=== PATIENT | female | born 1970 | race Caucasian/White ===

== ENCOUNTER 2022-04-27 18:34 | Inpatient (IN) | payer MEDICAID ==
[~2022-04-27] VITALS: Ht 160 cm; Wt 61.2 kg
[2022-04-27 18:39] VITALS: BP 161/112
--- NOTE | 2022-04-27 19:30 | NUR ---
RECEIVED PT IN BED 9, [facility] FROM [facility], PER EMS STAFF CALLED 911 STATING PATIENT WAS HYPERTENSIVE, EMS STATES BP ON SCENE WAS 184/100. PATIENT NONVERBAL NONAMBULATORY AT BASELINE. PMH: ID, ANXIETY [id number]
[2022-04-27] MEDS ORDERED: NACL 0.9% 1,000 ML IV ONE (20:10)
[2022-04-27 21:41] LABS: BASOPHILS % (AUTO) 0.3 % (0.0-2.0); EOSINOPHILS # (AUTO) 0.1 K/uL (0-0.4); EOSINOPHILS % (AUTO) 0.5 % (0.0-4.0); HEMOGLOBIN 12.1 g/dL (12.0-16.0); LYMPHOCYTES # (AUTO) 0.9 K/uL (2.5-16.5); LYMPHOCYTES % (AUTO) 7.1 % (20.5-51.1); MEAN CORPUSCULAR HEMOGLOBIN 29 pg (27-31); MEAN CORPUSCULAR HGB CONC 33 g/dL (33-37); MEAN CORPUSCULAR VOLUME 88.3 fL (80-94); MONOCYTES # (AUTO) 0.5 K/uL (0.8-1.0); NEUTROPHILS # (AUTO) 11.3 K/uL (1.8-7.7); NEUTROPHILS % (AUTO) 88.1 % (42.2-75.2); PLATELET COUNT (AUTO) 334 K/uL (140-450); RED BLOOD CELL COUNT(AUTO) 4.18 MIL/uL (4.20-5.40); WHITE BLOOD COUNT (AUTO) 12.8 K/uL (4.8-10.8)
[2022-04-27 21:52] LABS: APPEARANCE,URINE CLEAR (CLEAR); BILIRUBIN,URINE NEGATIVE (NEGATIVE); BLOOD, URINE TRACE-I (NEGATIVE); COLOR,URINE YELLOW (YELLOW); LEUKOCYTE ESTERASE ,URINE 2+ (NEGATIVE); NITRITE, URINE POSITIVE (NEGATIVE); UGLUCOSE TRACE (NEGATIVE)
--- NOTE | 2022-04-27 22:00 | NUR ---
STRAIGHT CATHED FOR UA
[2022-04-27 22:01] LABS: ALBUMIN 3.4 g/dL (3.4-5.0); CARBON DIOXIDE 26.6 mmol/L (21-32); CHLORIDE 101 mmol/L (98-107); CREATININE 0.8 mg/dL (0.6-1.3); GFR ARICAN-AMERICAN 96 mL/min (>90); GLUCOSE 178 mg/dL (74-106); POTASSIUM 3.6 mmol/L (3.5-5.1); SODIUM SERUM 136 mmol/L (136-145); TOTAL BILIRUBIN 0.3 mg/dL (0.0-1.0); UREA NITROGEN, BLOOD 21 mg/dL (7-18)
[2022-04-27] MEDS ORDERED: MAG SULF 2000 MG/WATER PREMIX 50 ML IV PRN (22:20)
[2022-04-27] MEDS ORDERED: POTASSIUM CHLORIDE 10 MEQ TABER PO PRN (22:20)
[2022-04-27] MEDS ORDERED: MORPHINE SULFATE 2 MG/ML SYR IVP PRN (22:20)
[2022-04-27] MEDS ORDERED: ACETAMINOPHEN 325 MG TAB PO PRN (22:20)
[2022-04-27] MEDS ORDERED: ZOLPIDEM 10 MG TAB PO PRN (22:20)
[2022-04-27] MEDS ORDERED: ONDANSETRON 4 MG/2 ML VIAL IVP PRN (22:20)
[2022-04-27] MEDS ORDERED: LORazepam 2 MG/ML VIAL IVP PRN (22:20)
[2022-04-27] MEDS ORDERED: DOCUSATE SODIUM 100 MG GELCAP PO PRN (22:20)
[2022-04-27] MEDS ORDERED: hydrALAZINE 20 MG/ML VIAL IVP PRN (22:20)
[2022-04-27 22:21] LABS: ASPARTATE AMINOTRANSFERASE 29 U/L (15-37)
--- NOTE | 2022-04-27 22:34 | NUR ---
CALLED NUMBER LISTED ON FILE TO COMPLETE MEDICATION RECONCILLIATION, PER FEI "I'M NOT MEDICATION CERTIFIED AND SO I DONT HAVE ACCESS TO THE INFORMATION." UNABLE TO COMPLETE MED REC AT THIS TIME.
--- NOTE | 2022-04-27 22:48 | NUR ---
JOBY OBTAINED AND SENT TO LAB
--- NOTE | 2022-04-28 00:20 | NUR ---
TO 110B VIA GURNEY ATTACHED TO SHOOTING GALLERY OPERATOR accompanied by 2 rns
[2022-04-28 01:00] VITALS: BP 144/79
--- NOTE | 2022-04-28 01:00 | NUR ---
Patient's Plan of Care was discussed and reviewed with DIGESTER OPERATOR HELPER: JACY BAILEY
--- NOTE | 2022-04-28 01:00 | NUR ---
Admitted from ER TO TELEMETRY UNIT , with chief complaint of HIGH BLOOD PRESSURE, 52 y/o ,Female, Cooperative, AWAKE, ALERT, NON-VERBAL, PATIENT WITH HISTORY OF SEVERE INTELLECTUAL DISABILITY. RESPIRATION EVEN AND UNLABORED. 02 SAT - 95% ON ROOM AIR. IV SALINE LOCK AT THE RIGHT AC G20, PATENT AND INTACT. INCONTINENT.HEAD TO TOE ASSESSMENT WITH CHEYANNE RN, NOTED REDNESS ON PERINEAL AREA, SKIN IS INTACT. NO APPEARANCE OF PAIN OR DISCOMFORT NOTED, FLACC -0. oriented to call light, bed, phone,television, bathroom, smoking policy,visiting hours, procedures, ID bracelet on. Belongings list checked.
--- NOTE | 2022-04-28 03:00 | NUR ---
SLEEPING COMFORTABLY IN BED. RESPIRATION EVEN AND UNLABORED.
[2022-04-28 04:00] VITALS: BP 140/87
--- NOTE | 2022-04-28 04:00 | NUR ---
VS STABLE. HR - 99, SINUS RHYTHM ON TELE MONITORING.
[2022-04-28 07:20] LABS: BASOPHILS % (AUTO) 0.2 % (0.0-2.0); EOSINOPHILS % (AUTO) 0.3 % (0.0-4.0); HEMATOCRIT 36.2 % (36-48); HEMOGLOBIN 11.9 g/dL (12.0-16.0); LYMPHOCYTES # (AUTO) 1.4 K/uL (2.5-16.5); LYMPHOCYTES % (AUTO) 11.8 % (20.5-51.1); MEAN CORPUSCULAR HEMOGLOBIN 29 pg (27-31); MEAN CORPUSCULAR HGB CONC 33 g/dL (33-37); MEAN CORPUSCULAR VOLUME 88.6 fL (80-94); MONOCYTES # (AUTO) 0.5 K/uL (0.8-1.0); MONOCYTES % (AUTO) 4.7 % (1.7-9.3); NEUTROPHILS # (AUTO) 9.6 K/uL (1.8-7.7); PLATELET COUNT (AUTO) 313 K/uL (140-450); RED BLOOD CELL COUNT(AUTO) 4.08 MIL/uL (4.20-5.40); RED CELL DISTRIBUTION WIDTH 16.2 % (11.6-13.7); WHITE BLOOD COUNT (AUTO) 11.5 K/uL (4.8-10.8)
--- NOTE | 2022-04-28 07:20 | NUR ---
ENDORSED TO AM SHIFT NURSE FOR CONTINUITY OF CARE.
--- NOTE | 2022-04-28 07:30 | NUR ---
RECEIVED REPORT FROM [employer]OTB[employer] COACH NURSE FOR CONTINUITY OF CARE, POC DISCUSSED. PT IS RESTING IN BED, APHASIC. ON TELE, ON ROOM AIR, CHEST RISING AND FALLING EVEN AND UNLABORED. NO ACUTE S/S OF DISTRESS. ALL SAFETY MEASURES IN PLACE, CALL LIGHT WITHIN REACH.
[2022-04-28 07:41] LABS: CARBON DIOXIDE 29.3 mmol/L (21-32); CREATININE 0.7 mg/dL (0.6-1.3); POTASSIUM 3.3 mmol/L (3.5-5.1)
[2022-04-28 08:00] VITALS: BP 142/99
--- NOTE | 2022-04-28 09:24 | NUR ---
PATIENT HAS BEEN SCREENED AND CATEGORIZED MODERATE NUTRITION RISK. PATIENT WILL BE SEEN WITHIN 3-5 DAYS OF ADMISSION. REVIEWED BY FITO TELLEZ RD
--- NOTE | 2022-04-28 10:21 | NUR ---
SPOKE WITH MILVIA JULIEN RN FROM PTS FACILITY. REQUESTING PT GET A XRAY ON RIGHT LEG DUE TO PAIN. MADE AWARE AND SEN RECEIVED
[2022-04-28 12:00] VITALS: BP 152/92
--- NOTE | 2022-04-28 14:24 | NUR ---
RIOS JULIEN CALLED AGAIN, ASKING IF THE RESULTS ARE AVAILABLE. STATED PENDING MDS TO READ RESULTS
--- NOTE | 2022-04-28 15:19 | NUR ---
PT REMOVED IV, CATH IN PLACE. NO BLEEDING NOTED.
--- NOTE | 2022-04-28 15:47 | NUR ---
DC PLANNING ASSESSMENT COMPLETE PLEASE REFER TO ASSESSMENT FOR DETAILS MOE REPORTS DC PLAN IS FOR PT TO RETURN TO [facility] WITH HOME PROVIDING TRANSPORTATION, WHEN PT IS MEDICALLY STABLE.
--- NOTE | 2022-04-28 15:50 | NUR ---
IV PLACED TO LEFT FOREARM 22G, 2 ATTEMPTS. PT TOLERATED. ALL SAFETY MEASURES IN PLACE
[2022-04-28 16:00] VITALS: BP 152/83
--- NOTE | 2022-04-28 18:15 | NUR ---
ALL NEEDS HAVE BEEN MET THROUGHOUT THE SHIFT, ALL SAFETY MEASURES IN PLACE. VSS.
--- NOTE | 2022-04-28 19:20 | NUR ---
RECD REPORT FROM BOSTON MAYA. PATIENT RESTING IN BED, AWAKE, ALERT, NON-VERBAL. RESPIRATION EVEN AND UNLABORED. IV SALINE LOCK AT THE LEFT FOREARM G22, PATENT AND INTACT. ON IV ANTIBIOTIC FOR UTI. SAFETY MEASURES ENFORCED. NO APPEARANCE OF PAIN NOTED, FLACC -0.
[2022-04-28 20:00] VITALS: BP 143/68
--- NOTE | 2022-04-28 20:00 | NUR ---
Patient's Plan of Care was discussed and reviewed with REFRIGERATOR CRATER: JACY BAILEY Addendum: 04/28/22 at 2121 by Yaneth Brady RN RN WRONG ENTRY
--- NOTE | 2022-04-28 21:00 | NUR ---
CLEANSED AND DIAPER CHANGED. MADE COMFORTABLE IN BED WITH PILLOWS.
--- NOTE | 2022-04-28 22:30 | NUR ---
IV INFILTRATED, NEW IV LINE INSERTED BY CHARGE NURSE KYLER AT THE RIGHT FOREARM G22.
--- NOTE | 2022-04-28 23:28 | NUR ---
UNABLE TO SLEEP, MEDICATED WITH AMBIEN PER MD ORDER.
[2022-04-29] VITALS: BP 141/69
--- NOTE | 2022-04-29 00:30 | NUR ---
SLEEPING COMFORTABLY IN BED. RESPIRATION EVEN AND UNLABORED.
--- NOTE | 2022-04-29 02:30 | NUR ---
CLEANSED, DIAPER CHANGED. MADE COMFORTABLE IN BED WITH PILLOWS.
[2022-04-29 04:00] VITALS: BP 128/79
--- NOTE | 2022-04-29 04:00 | NUR ---
HR - 101. SINUS TACHYCARDIA ON TELE MONITORING. SLEEPING COMFORTABLY.
[2022-04-29 07:20] LABS: BASOPHILS % (AUTO) 0.3 % (0.0-2.0); EOSINOPHILS # (AUTO) 0.1 K/uL (0-0.4); HEMATOCRIT 34.6 % (36-48); HEMOGLOBIN 11.5 g/dL (12.0-16.0); LYMPHOCYTES # (AUTO) 1.9 K/uL (2.5-16.5); LYMPHOCYTES % (AUTO) 17.8 % (20.5-51.1); MEAN CORPUSCULAR HEMOGLOBIN 29 pg (27-31); MEAN CORPUSCULAR HGB CONC 33 g/dL (33-37); MEAN CORPUSCULAR VOLUME 88.1 fL (80-94); MONOCYTES # (AUTO) 0.7 K/uL (0.8-1.0); MONOCYTES % (AUTO) 6.6 % (1.7-9.3); NEUTROPHILS # (AUTO) 7.8 K/uL (1.8-7.7); NEUTROPHILS % (AUTO) 74.3 % (42.2-75.2); PLATELET COUNT (AUTO) 318 K/uL (140-450); RED BLOOD CELL COUNT(AUTO) 3.93 MIL/uL (4.20-5.40); RED CELL DISTRIBUTION WIDTH 16.5 % (11.6-13.7); WHITE BLOOD COUNT (AUTO) 10.6 K/uL (4.8-10.8)
--- NOTE | 2022-04-29 07:23 | NUR ---
CONDITION REMAIN STABLE. ENDORSED TO AM SHIFT NURSE FOR CONTINUITY OF CARE.
[2022-04-29 07:42] LABS: ANION GAP 9.8 (8-16); CARBON DIOXIDE 28.6 mmol/L (21-32); CREATININE 0.6 mg/dL (0.6-1.3); POTASSIUM 3.4 mmol/L (3.5-5.1)
[2022-04-29 08:00] VITALS: BP 143/90
[2022-04-29] MEDS ORDERED: CEPH-588 PO (10:26)
--- NOTE | 2022-04-29 16:07 | NUR ---
ROUTINE DISCHARGE ORDER RECEIVE TO RETURN TO B & c. TELEMETRY AND IV REMOVED. PATIENT LEFT IN NO APPARENT DISTRESS. SEE DISCHARGE SUMMARY.
== END 2022-04-29 15:15 | disposition home or self-care (01) | DRG 720 ==
LOC: MED 18:34 → MTU 22:17
PROVIDERS: ADMIT Family Medicine; ATTEND Family Medicine
DX: A41.9 Sepsis, unspecified organism (principal); D72.0 Genetic anomalies of leukocytes; D64.9 Anemia, unspecified; N39.0 Urinary tract infection, site not specified; E87.6 Hypokalemia; E83.42 Hypomagnesemia; R73.9 Hyperglycemia, unspecified; R62.50 Unspecified lack of expected normal physiological development in childhood; Z20.822 Contact with and (suspected) exposure to COVID-19; D72.810 Lymphocytopenia
CPT/HCPCS: 36415; 70450; 71045; 73502; 80048; 80053; 81001; 83605; 83690; 83735; 84484; 85025; 87040; 87081; 87086; 96361; 96365; 99285; J0696; J7060; Q0092